=== PATIENT | female | born 1960 | race African-American/Black ===

== ENCOUNTER 2018-06-05 18:36 | Emergency (ER) | payer BC, OTHER ==
[2018-06-05 19:26] VITALS: BP 155/90
--- NOTE | 2018-06-05 20:03 | ER Document Report ---
ED General - General Chief Complaint: Blood Pressure Problem Stated Complaint: BLOOD PRESSURE ISSUE Time Seen by Provider: 06/05/18 19:57 Primary Care Provider: SHA,NO [Primary Care Provider] - Follow up as needed TRAVEL OUTSIDE OF THE [place] IN LAST 30 DAYS: Yes COUNTRY TRAVELED TO/FROM: [place] [facility] Patient complains to provider of: Hypertension Notes: Patient coming in for evaluation of hypertension. Patient states she took her blood pressure at home most of the bottle number and therefore came concerned came to the ER for further evaluation. Patient at this time denies any symptoms. Patient denies headaches fevers chills nausea vomiting diarrhea chest pain abdominal pain denies any syncope or dizziness. Patient states she normally sees her physician approximately once a year in [place] appointments coming up in June where she will need to have another evaluation. Patient denies a history of hypertension denies taking any medications. Patient states she did have salty sotelo day prior to her arrival here in ER. Otherwise patient looks to be nontoxic upon my evaluation - Related Data Allergies/Adverse Reactions: No Known Allergies Allergy (Unverified 06/05/18 18:40) Past Medical History - Social History Smoking Status: Never Smoker Frequency of alcohol use: None Drug Abuse: None Family History: Reviewed & Not Pertinent Patient has suicidal ideation: No Patient has homicidal ideation: No Renal/ Medical History: Denies: Hx Peritoneal Dialysis Musculoskeletal Medical History: Reports Hx Arthritis - bilat hips Review of Systems - Review of Systems Constitutional: Other - Hypertension EENT: No symptoms reported Cardiovascular: No symptoms reported Respiratory: No symptoms reported Gastrointestinal: No symptoms reported Genitourinary: No symptoms reported Female Genitourinary: No symptoms reported Musculoskeletal: No symptoms reported Skin: No symptoms reported Hematologic/Lymphatic: No symptoms reported Neurological/Psychological: No symptoms reported -: Yes All other systems reviewed and negative Physical Exam - Vital signs Vitals: Temp Pulse Resp BP Pulse Ox 98.1 F 73 16 155/90 H 100 06/05/18 19:24 06/05/18 19:24 06/05/18 19:24 06/05/18 19:24 06/05/18 19:24 Interpretation: Normal - General General appearance: Appears well, Alert - HEENT Head: Normocephalic, Atraumatic Eyes: Normal Pupils: PERRL - Respiratory Respiratory status: No respiratory distress Chest status: Nontender Breath sounds: Normal Chest palpation: Normal - Cardiovascular Rhythm: Regular Heart sounds: Normal auscultation Murmur: No - Abdominal Inspection: Normal Distension: No distension Bowel sounds: Normal Tenderness: Nontender Organomegaly: No organomegaly - Back Back: Normal, Nontender - Extremities General upper extremity: Normal inspection, Nontender, Normal color, Normal ROM, Normal temperature General lower extremity: Normal inspection, Nontender, Normal color, Normal ROM, Normal temperature, Normal weight bearing. No: Harris's sign - Neurological Neuro grossly intact: Yes Cognition: Normal Orientation: AAOx4 Kacie Coma Scale Eye Opening: Spontaneous [place] Coma Scale Verbal: Oriented [place] Coma Scale Motor: Obeys Commands [place] Coma Scale Total: 15 Speech: Normal Motor strength normal: LUE, RUE, LLE, RLE Sensory: Normal - Psychological Associated symptoms: Normal affect, Normal mood - Skin Skin Temperature: Warm Skin Moisture: Dry Skin Color: Normal Course - Re-evaluation Re-evalutation: 06/05/18 20:33 Educated the patient about hypertension. At this time physical examination is otherwise negative no acute findings. I explained to the patient at this time recommendations are not to treat astigmatic hypertension for the patient to follow-up with her primary care physician. Patient does meet statement that she may start taking her father's amlodipine 5 mg. Explained to the patient the risk of hypotension as well as hypertension causing [place] and stroke as that the patient somewhat insistent on taking the medication did recommend that we really start the patient on a low-dose amlodipine 2.5 she request a medication that is very important to keep a log of her blood pressures and to follow-up with her primary care physician. Patient was happy with this decision and satisfied with her care. - Vital Signs Vital signs: Temp Pulse Resp BP Pulse Ox 98.1 F 73 16 155/90 H 100 06/05/18 19:24 06/05/18 19:24 06/05/18 19:24 06/05/18 19:24 06/05/18 19:24 Discharge - Discharge Clinical Impression: Hypertension Qualifiers: Hypertension type: essential hypertension Qualified Code(s): I10 - Essential (primary) hypertension Instructions: Family Physicians / Practices, High Blood Pressure ([facility]), High Blood Pressure, Requiring Treatment ([facility]) Additional Instructions: Your physical examination today is normal. There is no critical pathology seen on the physical exam. I will highly recommend that you continue to watch her diet. We will start you on a very low dose of Norvasc for your blood pressure control. I would highly recommend to keep a blood pressure log taking her blood pressure at the same time every day until you follow-up with your primary care physician. Return to the ER for any concerning issues. Prescriptions: Amlodipine Besylate [Norvasc 2.5 mg Tablet] 2.5 mg PO DAILY #30 tablet Referrals: KIM DALTON [Primary Care Provider] - Follow up as needed
== END 2018-06-05 20:04 | disposition home or self-care (01) ==
LOC: ER 18:36
DX: I10 Essential (primary) hypertension (principal)
CPT/HCPCS: 99283